=== PATIENT | female | born 1985 | race Caucasian/White ===

== ENCOUNTER 2020-12-01 09:27 | Day surgery (SDC) | payer OTHER, SELFPAY ==
[2020-11-28 10:52] LABS: BASOPHILS % (AUTO) 0.4 % (0.0-2.0); EOSINOPHILS # (AUTO) 0.1 K/uL (0-0.4); EOSINOPHILS % (AUTO) 1.7 % (0.0-4.0); HEMATOCRIT 49.3 % (36-48); HEMOGLOBIN 16.6 g/dL (12.0-16.0); LYMPHOCYTES # (AUTO) 2.3 K/uL (2.5-16.5); LYMPHOCYTES % (AUTO) 28.7 % (20.5-51.1); MEAN CORPUSCULAR HEMOGLOBIN 29 pg (27-31); MEAN CORPUSCULAR HGB CONC 34 g/dL (33-37); MEAN CORPUSCULAR VOLUME 86.6 fL (80-94); MONOCYTES # (AUTO) 0.5 K/uL (0.8-1.0); MONOCYTES % (AUTO) 6.5 % (1.7-9.3); NEUTROPHILS % (AUTO) 62.7 % (42.2-75.2); PLATELET COUNT (AUTO) 233 K/uL (140-450); RED BLOOD CELL COUNT(AUTO) 5.69 MIL/uL (4.20-5.40); RED CELL DISTRIBUTION WIDTH 12.9 % (11.6-13.7); WHITE BLOOD COUNT (AUTO) 7.9 K/uL (4.8-10.8)
[2020-11-28 11:07] LABS: ALBUMIN 3.9 g/dL (3.4-5.0); ANION GAP 11.7 (8-16); CARBON DIOXIDE 25.2 mmol/L (21-32); CREATININE 0.8 mg/dL (0.6-1.3); POTASSIUM 3.9 mmol/L (3.5-5.1); TOTAL BILIRUBIN 1.4 mg/dL (0.0-1.0)
[~2020-12-01] VITALS: Ht 172.7 cm; Wt 122.5 kg
[2020-12-01] MEDS ORDERED: BUPIVACAINE-MPF/EPI 0.5% 30 ML VIAL INJ ONE (11:43)
[2020-12-01] MEDS ORDERED: BUPIVACAINE-MPF 0.5% 30 ML VIAL INJ ONE (11:47)
[2020-12-01] MEDS ORDERED: SEVOFLURANE 250 ML BTL INH ONE (11:55)
[2020-12-01] MEDS ORDERED: ONDANSETRON 4 MG/2 ML VIAL ONE (11:55)
[2020-12-01] MEDS ORDERED: KETOROLAC 30 MG/ML VIAL ONE (11:55)
[2020-12-01] MEDS ORDERED: fentaNYL citrate 0.05 MG/ML VIAL ONE (11:55)
[2020-12-01] MEDS ORDERED: MIDAZOLAM 2 MG/2 ML VIAL ONE (11:55)
[2020-12-01] MEDS ORDERED: PROPOFOL 200 MG/20 ML VIAL IV ONE (11:55)
[2020-12-01] MEDS ORDERED: SUCCINYLCHOLINE CHLORIDE 200 MG/10 ML VIAL IVP ONE (11:55)
[2020-12-01] MEDS ORDERED: DEXAMETHASONE 4 MG/ML VIAL ONE (11:55)
[2020-12-01] MEDS ORDERED: LIDOCAINE 2% 100 MG/5 ML SYR IVP ONE (11:55)
[2020-12-01] MEDS ORDERED: SUGAMMADEX SODIUM 200 MG/2 ML VIAL IV ONE (11:55)
[2020-12-01] MEDS ORDERED: ROCURONIUM 50 MG/5 ML VIAL IV ONE (11:55)
[2020-12-01] MEDS ORDERED: LACTATED RINGERS 1,000 ML IV SCH (12:40)
[2020-12-01] MEDS ORDERED: MEPERIDINE 25 MG/ML SYR IVP PRN (12:40)
[2020-12-01] MEDS ORDERED: diphenhydrAMINE 50 MG/ML VIAL IVP PRN (12:40)
[2020-12-01] MEDS ORDERED: HYDROmorphone 1 MG/ML AMP IVP PRN (12:40)
[2020-12-01] MEDS ORDERED: ONDANSETRON 4 MG/2 ML VIAL IVP PRN (12:40)
== END 2020-12-01 14:10 | disposition home or self-care (01) ==
LOC: MDS 09:27 → MMU 09:28 → MDS 14:10
PROVIDERS: ATTEND Obstetrics & Gynecology
DX: Z30.2 Encounter for sterilization (principal); E66.01 Morbid (severe) obesity due to excess calories
CPT/HCPCS: 36415; 58670; 80053; 84703; 85025; 87426; J0330; J1100; J1885; J2001; J2250; J2405; J2704; J3010; J3490; J7120